=== PATIENT | male | born 1965 | race Caucasian/White ===

== ENCOUNTER 2023-09-24 14:12 | Emergency (ER) | payer MEDICAID ==
[~2023-09-24] VITALS: Ht 175.3 cm; Wt 120.2 kg
[2023-09-24 14:16] VITALS: BP 138/92
[2023-09-24] MEDS ORDERED: NORT25 PO ×2 (14:23→15:02)
[2023-09-24] MEDS ORDERED: QUET25 PO ×2 (14:23→15:02)
== END 2023-09-24 15:15 | disposition home or self-care (01) ==
LOC: ER 14:12
DX: H92.03 Otalgia, bilateral (principal); Z76.0 Encounter for issue of repeat prescription; F31.9 Bipolar disorder, unspecified; Z79.899 Other long term (current) drug therapy
CPT/HCPCS: 99281